=== PATIENT | male | born 1960 | race African-American/Black ===

== ENCOUNTER 2022-08-22 13:25 | Inpatient (IN) | payer OTHER ==
[2022-08-22 15:44] VITALS: BMI 25.8
[2022-08-22] MEDS ORDERED: chlordiazePOXIDE HCL 25 MG CAPSULE PO SCH (17:00)
[2022-08-22] MEDS ORDERED: BISMUTH SUBSALICYLATE 524 MG/30 ML PO PRN (17:24)
[2022-08-22] MEDS ORDERED: guaiFENesin 600 MG TABLET.ER (FP) PO PRN (17:24)
[2022-08-22] MEDS ORDERED: NICOTINE 10 MG CARTRIDGE (INHALER) IH PRN (17:24)
[2022-08-22] MEDS ORDERED: METHOCARBAMOL 500 MG TABLET PO PRN (17:24)
[2022-08-22] MEDS ORDERED: DICYCLOMINE HCL 10 MG CAPSULE PO PRN (17:24)
[2022-08-22] MEDS ORDERED: IBUPROFEN 400 MG TABLET (FP) PO PRN (17:24)
[2022-08-22] MEDS ORDERED: NALOXONE HCL 0.4 MG/ML VIAL IM PRN (17:24)
[2022-08-22] MEDS ORDERED: ONDANSETRON *ODT* 4 MG TABLET SL PRN (17:24)
[2022-08-22] MEDS ORDERED: POLYETHYLENE GLYCOL (HEALTHYLAX) 3350 17 GM PACKET PO PRN (17:24)
[2022-08-22] MEDS ORDERED: MAG HYDROX/AL HYDROX/SIMETH 30 ML UNIT-DOSE CUP PO PRN (17:24)
[2022-08-22] MEDS ORDERED: BENZOCAINE/MENTHOL (CHLORASEPTIC ) LOZENGE MM PRN (17:24)
[2022-08-22] MEDS ORDERED: NALOXONE HCL (KLOXXADO) 8 MG SPRAY NS PRN (17:24)
[2022-08-22] MEDS ORDERED: methaDONE HCL 10 MG TABLET (FOR DETOX USE ONLY) PO ONE ×2 (17:24→20:15)
[2022-08-22] MEDS ORDERED: MAGNESIUM HYDROX 2400MG/30ML ORAL SUSPENSION 30 ML CUP PO PRN (17:24)
[2022-08-22] MEDS ORDERED: IBUPROFEN 600 MG TABLET (FP) PO PRN (17:24)
[2022-08-22] MEDS ORDERED: BENZONATATE 200 MG CAPSULE PO PRN (17:24)
[2022-08-22] MEDS ORDERED: LOPERAMIDE HCL 2 MG CAPSULE PO PRN (17:24)
[2022-08-22] MEDS ORDERED: NICOTINE POLACRILEX 2 MG GUM BUC PRN (17:24)
[2022-08-22] MEDS ORDERED: ACETAMINOPHEN 325 MG TABLET (FP) PO PRN (17:24)
[2022-08-22] MEDS: chlordiazePOXIDE HCL 25 MG CAPSULE PO SCH ×2 (20:34→22:48)
[2022-08-22] MEDS: PRENATAL VITAMINS W/ FOLIC ACID TABLET (FP) PO SCH (20:39)
[2022-08-22] MEDS: MELATONIN 5 MG TABLETS PO SCH (22:40)
[2022-08-22] MEDS: THIAMINE HCL 100 MG TABLET (FP) PO SCH (22:40)
[2022-08-23] MEDS: chlordiazePOXIDE HCL 25 MG CAPSULE PO SCH ×4 (05:44→22:19)
[2022-08-23] MEDS: PRENATAL VITAMINS W/ FOLIC ACID TABLET (FP) PO SCH (10:11)
[2022-08-23 10:13] LABS: HEMATOCRIT 32.6 % (35.4-49); HEMOGLOBIN 10.8 GM/dL (11.7-16.9); MCH 29.8 pg (25.7-33.7); MCHC 33.2 g/dl (32.0-35.9); MEAN CELL VOLUME 89.9 fl (80-96); MEAN PLT VOLUME 7.5 fl (7.5-11.1); PLATELET COUNT 158 10^3/uL (134-434); RBC 3.62 M/mm3 (4.00-5.60); RDW 14.7 % (11.9-15.9); WHITE BLOOD COUNT 5.3 K/mm3 (4.0-10.0)
[2022-08-23 13:49] LABS: CALCIUM 8.1 mg/dL (8.5-10.1)
[2022-08-23 13:50] LABS: ALBUMIN 2.3 g/dl (3.4-5.0); BLOOD UREA NITROGEN 20.8 mg/dL (7-18)
[2022-08-23 13:53] LABS: CREATININE 1.2 mg/dL (0.55-1.3)
[2022-08-23 14:01] LABS: BILIRUBIN,TOTAL 0.5 mg/dL (0.2-1)
[2022-08-23] MEDS ORDERED: POTASSIUM CHLORIDE ORAL LIQUID 20 MEQ/15 ML PO ONE (14:41)
[2022-08-23] MEDS: metFORMIN HCL 500 MG TABLET (FP) PO SCH (17:42)
[2022-08-23] MEDS: MELATONIN 5 MG TABLETS PO SCH (22:18)
[2022-08-23] MEDS: THIAMINE HCL 100 MG TABLET (FP) PO SCH (22:18)
[2022-08-24] MEDS: metFORMIN HCL 500 MG TABLET (FP) PO SCH ×2 (06:07→18:01)
[2022-08-24] MEDS: chlordiazePOXIDE HCL 25 MG CAPSULE PO SCH ×4 (06:07→22:31)
[2022-08-24] MEDS ORDERED: methaDONE HCL 10 MG TABLET (FOR DETOX USE ONLY) PO ONE (10:00)
[2022-08-24] MEDS: PRENATAL VITAMINS W/ FOLIC ACID TABLET (FP) PO SCH (10:10)
[2022-08-24] MEDS: MELATONIN 5 MG TABLETS PO SCH (22:31)
[2022-08-24] MEDS: THIAMINE HCL 100 MG TABLET (FP) PO SCH (22:31)
[2022-08-25] MEDS: chlordiazePOXIDE HCL 10 MG CAPSULE PO SCH ×2 (05:49→10:54)
[2022-08-25] MEDS: metFORMIN HCL 500 MG TABLET (FP) PO SCH (06:02)
[2022-08-25] MEDS: PRENATAL VITAMINS W/ FOLIC ACID TABLET (FP) PO SCH (10:30)
[2022-08-25] MEDS ORDERED: cloNIDine HCL 0.1 MG TABLET PO ONE (10:30)
[2022-08-25 14:15] VITALS: BP 148/107; PULSE 72; RESP 17; TEMP 97.6
[2022-08-26] MEDS ORDERED: chlordiazePOXIDE HCL 10 MG CAPSULE PO SCH (05:00)
[2022-08-26] MEDS ORDERED: methaDONE HCL 10 MG TABLET (FOR DETOX USE ONLY) PO ONE (10:00)
[2022-08-27] MEDS ORDERED: chlordiazePOXIDE HCL 10 MG CAPSULE PO ONE (05:00)
== END 2022-08-25 13:20 | disposition home or self-care (01) | DRG 773 ==
LOC: YASAS 13:25 → Y3N 17:34
PROVIDERS: ADMIT Allergy & Immunology; ATTEND Surgery
PROC: HZ2ZZZZ Detoxification Services for Substance Abuse Treatment (ICD-10-PCS; principal; 2022-08-22)
DX: F11.23 Opioid dependence with withdrawal (principal); F10.230 Alcohol dependence with withdrawal, uncomplicated; F14.20 Cocaine dependence, uncomplicated; F17.210 Nicotine dependence, cigarettes, uncomplicated; E78.2 Mixed hyperlipidemia; I10 Essential (primary) hypertension; E11.59 Type 2 diabetes mellitus with other circulatory complications; Z79.84 Long term (current) use of oral hypoglycemic drugs
CPT/HCPCS: 36415; 80053; 82962; 84132; 85027; 86780; 87811; C9803-CS; U0003; U0005

== ENCOUNTER 2023-03-07 14:12 | Inpatient (IN) | payer OTHER ==
[2023-03-07 15:05] VITALS: RESP 18
[2023-03-07] MEDS ORDERED: BENZOCAINE/MENTHOL (CHLORASEPTIC ) LOZENGE MM PRN (16:06)
[2023-03-07] MEDS ORDERED: NALOXONE HCL (KLOXXADO) 8 MG SPRAY NS PRN (16:06)
[2023-03-07] MEDS ORDERED: POLYETHYLENE GLYCOL (HEALTHYLAX) 3350 17 GM PACKET PO PRN (16:06)
[2023-03-07] MEDS ORDERED: LOPERAMIDE HCL 2 MG CAPSULE PO PRN (16:06)
[2023-03-07] MEDS ORDERED: ACETAMINOPHEN 325 MG TABLET (FP) PO PRN (16:06)
[2023-03-07] MEDS ORDERED: NICOTINE POLACRILEX 4 MG GUM BUC PRN (16:06)
[2023-03-07] MEDS ORDERED: NALOXONE HCL 0.4 MG/ML VIAL IVPUSH PRN (16:06)
[2023-03-07] MEDS ORDERED: COLLOIDAL OATMEAL 1 BAR EACH TP PRN (16:06)
[2023-03-07] MEDS ORDERED: BENZONATATE 200 MG CAPSULE PO PRN (16:06)
[2023-03-07] MEDS ORDERED: MAGNESIUM HYDROX 2400MG/30ML ORAL SUSPENSION 30 ML CUP PO PRN (16:06)
[2023-03-07] MEDS ORDERED: MAG HYDROX/AL HYDROX/SIMETH 30 ML UNIT-DOSE CUP PO PRN (16:06)
[2023-03-07] MEDS ORDERED: guaiFENesin 600 MG TABLET.ER (FP) PO PRN (16:06)
[2023-03-07] MEDS: INSULIN SLIDING SCALE (NOVOLOG) 1 VIAL SQ SCH (17:18)
[2023-03-07] MEDS: MELATONIN 5 MG TABLETS PO SCH (21:19)
[2023-03-07] MEDS: metFORMIN HCL 500 MG TABLET (FP) PO SCH (21:19)
[2023-03-07] MEDS: THIAMINE HCL 100 MG TABLET (FP) PO SCH (21:20)
[2023-03-07] MEDS: ROSUVASTATIN CA 40 MG TABLET PO SCH (23:30)
[2023-03-08] MEDS: INSULIN SLIDING SCALE (NOVOLOG) 1 VIAL SQ SCH ×2 (07:00→16:52)
[2023-03-08] MEDS: FUROSEMIDE 40 MG TABLET (FP) PO SCH (09:54)
[2023-03-08] MEDS: metFORMIN HCL 500 MG TABLET (FP) PO SCH ×2 (09:54→21:21)
[2023-03-08] MEDS: ASPIRIN 81 MG CHEWABLE TABLETS PO SCH (09:54)
[2023-03-08] MEDS: PRENATAL VITAMINS W/ FOLIC ACID TABLET (FP) PO SCH (09:55)
[2023-03-08] MEDS: amLODIPine BESYLATE 10 MG TABLET (FP) PO SCH (09:57)
[2023-03-08] MEDS: THIAMINE HCL 100 MG TABLET (FP) PO SCH ×2 (09:57→21:22)
[2023-03-08] MEDS: NICOTINE 14 MG/24 HOURS TOPICAL PATCH TD PRN (09:59)
[2023-03-08 12:53] LABS: HIV INTERPRETATION NEGATIVE (NEGATIVE)
[2023-03-08] MEDS: ISOSORBIDE MONONITRATE 60 MG TAB.SR.24H (FP) PO SCH (13:20)
[2023-03-08] MEDS: MELATONIN 5 MG TABLETS PO SCH (21:22)
[2023-03-09] MEDS: ROSUVASTATIN CA 40 MG TABLET PO SCH (00:11)
[2023-03-09] MEDS ORDERED: INSULIN (NOVOLOG) ASPART 100 UNITS/ML 10ML VIAL ONE (07:21)
[2023-03-09] MEDS: INSULIN SLIDING SCALE (NOVOLOG) 1 VIAL SQ SCH ×2 (07:22→17:31)
[2023-03-09] MEDS: ISOSORBIDE MONONITRATE 60 MG TAB.SR.24H (FP) PO SCH (09:46)
[2023-03-09] MEDS: metFORMIN HCL 500 MG TABLET (FP) PO SCH ×2 (09:46→21:28)
[2023-03-09] MEDS: amLODIPine BESYLATE 10 MG TABLET (FP) PO SCH (09:46)
[2023-03-09] MEDS: FUROSEMIDE 40 MG TABLET (FP) PO SCH (09:46)
[2023-03-09] MEDS: ASPIRIN 81 MG CHEWABLE TABLETS PO SCH (09:47)
[2023-03-09] MEDS: THIAMINE HCL 100 MG TABLET (FP) PO SCH ×2 (09:47→21:29)
[2023-03-09] MEDS: PRENATAL VITAMINS W/ FOLIC ACID TABLET (FP) PO SCH (09:47)
[2023-03-09] MEDS: NICOTINE 14 MG/24 HOURS TOPICAL PATCH TD PRN (09:49)
[2023-03-09] MEDS: IBUPROFEN 600 MG TABLET (FP) PO PRN ×2 (11:15→16:32)
[2023-03-09] MEDS ORDERED: ROSUVASTATIN CA 10 MG TABLET ONE (20:09)
[2023-03-09] MEDS: ROSUVASTATIN CA 20 MG TABLET PO SCH (21:28)
[2023-03-09] MEDS: MELATONIN 5 MG TABLETS PO SCH (21:29)
[2023-03-10] MEDS: METHOCARBAMOL 500 MG TABLET PO PRN ×2 (00:13→06:15)
[2023-03-10] MEDS: hydrOXYzine PAMOATE 25 MG CAPSULE (FP) PO PRN (00:13)
[2023-03-10] MEDS: IBUPROFEN 600 MG TABLET (FP) PO PRN ×2 (02:19→06:13)
[2023-03-10] MEDS: INSULIN SLIDING SCALE (NOVOLOG) 1 VIAL SQ SCH ×2 (06:23→17:04)
[2023-03-10] MEDS: PRENATAL VITAMINS W/ FOLIC ACID TABLET (FP) PO SCH (09:57)
[2023-03-10] MEDS: metFORMIN HCL 500 MG TABLET (FP) PO SCH ×2 (09:57→21:11)
[2023-03-10] MEDS: ASPIRIN 81 MG CHEWABLE TABLETS PO SCH (09:57)
[2023-03-10] MEDS: amLODIPine BESYLATE 10 MG TABLET (FP) PO SCH (09:58)
[2023-03-10] MEDS: ISOSORBIDE MONONITRATE 60 MG TAB.SR.24H (FP) PO SCH (09:58)
[2023-03-10 10:40] LABS: POTASSIUM 4.1 mmol/L (3.5-5.1)
[2023-03-10 10:45] LABS: INR 1.12 (0.83-1.09)
[2023-03-10 10:48] LABS: ACTIVATED PTT 33.6 SECONDS (25.2-36.5)
[2023-03-10 10:54] LABS: ALBUMIN 3.2 g/dl (3.4-5.0); BLOOD UREA NITROGEN 15.6 mg/dL (7-18); CALCIUM 8.8 mg/dL (8.5-10.1); MAGNESIUM 1.9 mg/dL (1.8-2.4)
[2023-03-10 10:57] LABS: CHOLESTEROL 141 mg/dL (50-200); CREATININE 1.2 mg/dL (0.55-1.3)
[2023-03-10 10:58] LABS: LDL CHOLESTEROL (ONLY SJRH) 87 mg/dL (5-100)
[2023-03-10 10:59] LABS: BILIRUBIN,TOTAL 0.9 mg/dL (0.2-1); TOT PROT 7.3 g/dl (6.4-8.2)
[2023-03-10 11:00] LABS: HDL CHOLESTEROL 55 mg/dL (40-60)
[2023-03-10] MEDS: THIAMINE HCL 100 MG TABLET (FP) PO SCH ×2 (11:21→21:11)
[2023-03-10] MEDS: FUROSEMIDE 20 MG TABLET (FP) PO SCH (11:22)
[2023-03-10] MEDS: NICOTINE 14 MG/24 HOURS TOPICAL PATCH TD PRN (11:25)
[2023-03-10] MEDS: IBUPROFEN 400 MG TABLET (FP) PO PRN (16:46)
[2023-03-10] MEDS ORDERED: ROSUVASTATIN CA 10 MG TABLET ONE (19:17)
[2023-03-10] MEDS: MELATONIN 5 MG TABLETS PO SCH (21:11)
[2023-03-10] MEDS: SUVOREXANT 5 MG TABLET PO PRN (21:11)
[2023-03-10] MEDS: ROSUVASTATIN CA 20 MG TABLET PO SCH (21:12)
[2023-03-11] MEDS: IBUPROFEN 400 MG TABLET (FP) PO PRN (00:24)
[2023-03-11] MEDS: INSULIN SLIDING SCALE (NOVOLOG) 1 VIAL SQ SCH ×2 (06:27→17:33)
[2023-03-11] MEDS: IBUPROFEN 600 MG TABLET (FP) PO PRN (06:28)
[2023-03-11] MEDS: THIAMINE HCL 100 MG TABLET (FP) PO SCH ×2 (10:24→21:20)
[2023-03-11] MEDS: ASPIRIN 81 MG CHEWABLE TABLETS PO SCH (10:24)
[2023-03-11] MEDS: amLODIPine BESYLATE 10 MG TABLET (FP) PO SCH (10:24)
[2023-03-11] MEDS: FUROSEMIDE 20 MG TABLET (FP) PO SCH (10:24)
[2023-03-11] MEDS: CHOLECALCIFEROL (VIT D3) 400 UNIT (10 MCG) TABLET PO SCH (10:24)
[2023-03-11] MEDS: metFORMIN HCL 500 MG TABLET (FP) PO SCH ×2 (10:25→21:21)
[2023-03-11] MEDS: PRENATAL VITAMINS W/ FOLIC ACID TABLET (FP) PO SCH (10:25)
[2023-03-11] MEDS: NICOTINE 14 MG/24 HOURS TOPICAL PATCH TD PRN (10:26)
[2023-03-11] MEDS: ISOSORBIDE MONONITRATE 60 MG TAB.SR.24H (FP) PO SCH (10:26)
[2023-03-11] MEDS ORDERED: ROSUVASTATIN CA 10 MG TABLET ONE (19:44)
[2023-03-11] MEDS: ROSUVASTATIN CA 20 MG TABLET PO SCH (21:21)
[2023-03-11] MEDS: MELATONIN 5 MG TABLETS PO SCH (23:10)
[2023-03-12] MEDS: METHOCARBAMOL 500 MG TABLET PO PRN (01:08)
[2023-03-12] MEDS: hydrOXYzine PAMOATE 25 MG CAPSULE (FP) PO PRN (01:08)
[2023-03-12] MEDS: INSULIN SLIDING SCALE (NOVOLOG) 1 VIAL SQ SCH ×2 (07:35→17:12)
[2023-03-12] MEDS: ASPIRIN 81 MG CHEWABLE TABLETS PO SCH (09:52)
[2023-03-12] MEDS: PRENATAL VITAMINS W/ FOLIC ACID TABLET (FP) PO SCH (09:52)
[2023-03-12] MEDS: FUROSEMIDE 20 MG TABLET (FP) PO SCH (09:52)
[2023-03-12] MEDS: THIAMINE HCL 100 MG TABLET (FP) PO SCH ×2 (09:52→21:22)
[2023-03-12] MEDS: metFORMIN HCL 500 MG TABLET (FP) PO SCH ×2 (09:53→21:22)
[2023-03-12] MEDS: amLODIPine BESYLATE 10 MG TABLET (FP) PO SCH (09:53)
[2023-03-12] MEDS: CHOLECALCIFEROL (VIT D3) 400 UNIT (10 MCG) TABLET PO SCH (09:53)
[2023-03-12] MEDS: ISOSORBIDE MONONITRATE 60 MG TAB.SR.24H (FP) PO SCH (09:54)
[2023-03-12] MEDS: NICOTINE 14 MG/24 HOURS TOPICAL PATCH TD PRN (09:55)
[2023-03-12] MEDS ORDERED: INSULIN (NOVOLOG) ASPART 100 UNITS/ML 10ML VIAL ONE (17:11)
[2023-03-12] MEDS: ROSUVASTATIN CA 20 MG TABLET PO SCH (21:22)
[2023-03-12] MEDS: IBUPROFEN 400 MG TABLET (FP) PO PRN (21:22)
[2023-03-12] MEDS: MELATONIN 5 MG TABLETS PO SCH (23:17)
[2023-03-12] MEDS: SUVOREXANT 5 MG TABLET PO PRN (23:19)
[2023-03-13] MEDS ORDERED: INSULIN (NOVOLOG) ASPART 100 UNITS/ML 10ML VIAL ONE (06:46)
[2023-03-13] MEDS: INSULIN SLIDING SCALE (NOVOLOG) 1 VIAL SQ SCH ×2 (06:48→16:58)
[2023-03-13] MEDS: ASPIRIN 81 MG CHEWABLE TABLETS PO SCH (09:57)
[2023-03-13] MEDS: CHOLECALCIFEROL (VIT D3) 400 UNIT (10 MCG) TABLET PO SCH (09:57)
[2023-03-13] MEDS: PRENATAL VITAMINS W/ FOLIC ACID TABLET (FP) PO SCH (09:57)
[2023-03-13] MEDS: FUROSEMIDE 20 MG TABLET (FP) PO SCH (09:58)
[2023-03-13] MEDS: THIAMINE HCL 100 MG TABLET (FP) PO SCH ×2 (09:58→21:04)
[2023-03-13] MEDS: metFORMIN HCL 500 MG TABLET (FP) PO SCH ×2 (09:59→21:05)
[2023-03-13] MEDS: ISOSORBIDE MONONITRATE 60 MG TAB.SR.24H (FP) PO SCH (10:00)
[2023-03-13] MEDS: amLODIPine BESYLATE 10 MG TABLET (FP) PO SCH (10:00)
[2023-03-13] MEDS: NICOTINE 14 MG/24 HOURS TOPICAL PATCH TD PRN (10:02)
[2023-03-13] MEDS: MAGNESIUM CITRATE 300 ML BOTTLE PO SCH (11:51)
[2023-03-13] MEDS: IBUPROFEN 400 MG TABLET (FP) PO PRN (19:03)
[2023-03-13] MEDS ORDERED: ROSUVASTATIN CA 10 MG TABLET ONE (20:12)
[2023-03-13] MEDS: MELATONIN 5 MG TABLETS PO SCH (21:04)
[2023-03-13] MEDS: ROSUVASTATIN CA 20 MG TABLET PO SCH (21:05)
[2023-03-13] MEDS ORDERED: SUVOREXANT 5 MG TABLET PO PRN (22:00)
[2023-03-13] MEDS: SUVOREXANT 10 MG TABLET PO PRN (23:26)
[2023-03-14] MEDS: IBUPROFEN 600 MG TABLET (FP) PO PRN ×2 (03:49→10:20)
[2023-03-14] MEDS: metFORMIN HCL 500 MG TABLET (FP) PO SCH ×2 (06:39→20:02)
[2023-03-14] MEDS: INSULIN SLIDING SCALE (NOVOLOG) 1 VIAL SQ SCH ×2 (06:40→16:45)
[2023-03-14] MEDS: PRENATAL VITAMINS W/ FOLIC ACID TABLET (FP) PO SCH (10:19)
[2023-03-14] MEDS: CHOLECALCIFEROL (VIT D3) 400 UNIT (10 MCG) TABLET PO SCH (10:19)
[2023-03-14] MEDS: ISOSORBIDE MONONITRATE 60 MG TAB.SR.24H (FP) PO SCH (10:19)
[2023-03-14] MEDS: amLODIPine BESYLATE 10 MG TABLET (FP) PO SCH (10:19)
[2023-03-14] MEDS: THIAMINE HCL 100 MG TABLET (FP) PO SCH ×2 (10:20→21:20)
[2023-03-14] MEDS: ASPIRIN 81 MG CHEWABLE TABLETS PO SCH (10:20)
[2023-03-14] MEDS: MAGNESIUM CITRATE 300 ML BOTTLE PO SCH (10:22)
[2023-03-14] MEDS: NICOTINE 14 MG/24 HOURS TOPICAL PATCH TD PRN (10:23)
[2023-03-14] MEDS: FUROSEMIDE 20 MG TABLET (FP) PO SCH (10:50)
[2023-03-14] MEDS ORDERED: ROSUVASTATIN CA 10 MG TABLET ONE (19:49)
[2023-03-14] MEDS: hydrOXYzine PAMOATE 25 MG CAPSULE (FP) PO PRN (21:20)
[2023-03-14] MEDS: MELATONIN 5 MG TABLETS PO SCH (21:20)
[2023-03-14] MEDS: ROSUVASTATIN CA 20 MG TABLET PO SCH (21:20)
[2023-03-14] MEDS: SUVOREXANT 10 MG TABLET PO PRN (22:49)
[2023-03-15] MEDS ORDERED: INSULIN (NOVOLOG) ASPART 100 UNITS/ML 10ML VIAL ONE (05:02)
[2023-03-15] MEDS: metFORMIN HCL 500 MG TABLET (FP) PO SCH (05:20)
[2023-03-15] MEDS: INSULIN SLIDING SCALE (NOVOLOG) 1 VIAL SQ SCH (06:06)
[2023-03-15 06:53] VITALS: TEMP 97.5
[2023-03-15] MEDS: PRENATAL VITAMINS W/ FOLIC ACID TABLET (FP) PO SCH (10:35)
[2023-03-15] MEDS: amLODIPine BESYLATE 10 MG TABLET (FP) PO SCH (10:35)
[2023-03-15] MEDS: ASPIRIN 81 MG CHEWABLE TABLETS PO SCH (10:35)
[2023-03-15] MEDS: MAGNESIUM CITRATE 300 ML BOTTLE PO SCH (10:35)
[2023-03-15] MEDS: CHOLECALCIFEROL (VIT D3) 400 UNIT (10 MCG) TABLET PO SCH (10:35)
[2023-03-15] MEDS: THIAMINE HCL 100 MG TABLET (FP) PO SCH (10:35)
[2023-03-15] MEDS: ISOSORBIDE MONONITRATE 60 MG TAB.SR.24H (FP) PO SCH (10:36)
[2023-03-15] MEDS: FUROSEMIDE 20 MG TABLET (FP) PO SCH (10:36)
[2023-03-15] MEDS: NICOTINE 14 MG/24 HOURS TOPICAL PATCH TD PRN (10:37)
[2023-03-15 10:58] VITALS: BP 125/71; PULSE 73
[2023-03-15] MEDS ORDERED: MAGNESIUM CITRATE 300 ML BOTTLE PO PRN (12:16)
== END 2023-03-15 15:57 | disposition home or self-care (01) | DRG 772 ==
LOC: YASAS 14:12 → Y5N 14:13
PROVIDERS: ADMIT Allergy & Immunology; ATTEND Psychiatry & Neurology Pain Medicine
PROC: HZ42ZZZ Group Counseling for Substance Abuse Treatment, Cognitive-Behavioral (ICD-10-PCS; principal; 2023-03-07)
DX: F10.20 Alcohol dependence, uncomplicated (principal); F14.20 Cocaine dependence, uncomplicated; F17.210 Nicotine dependence, cigarettes, uncomplicated; G47.00 Insomnia, unspecified; I10 Essential (primary) hypertension; E78.2 Mixed hyperlipidemia; E11.59 Type 2 diabetes mellitus with other circulatory complications; Z79.84 Long term (current) use of oral hypoglycemic drugs; Z86.79 Personal history of other diseases of the circulatory system; Z95.0 Presence of cardiac pacemaker
CPT/HCPCS: 36415; 71045-TC-FY; 80053; 80061; 82140; 82306; 82550; 82962; 83735; 84484; 85610; 85730; 86803; 87389; 93005; 93010

== ENCOUNTER 2024-03-21 11:42 | Inpatient (IN) | payer OTHER ==
[2024-03-21 11:51] VITALS: BMI 23.8
[2024-03-21] MEDS ORDERED: NICOTINE POLACRILEX 2 MG GUM BUC PRN (13:03)
[2024-03-21] MEDS ORDERED: NALOXONE (NYS OPIOID OVERDOSE PROGRAM) 4 MG/0.1 ML SPRAY NS PRN (13:03)
[2024-03-21] MEDS ORDERED: NALOXONE (NARCAN) HCL 4 MG/0.1 ML SPRAY NS PRN (13:03)
[2024-03-21] MEDS ORDERED: BENZONATATE 200 MG CAPSULE PO PRN (13:03)
[2024-03-21] MEDS ORDERED: BENZOCAINE/MENTHOL (CHLORASEPTIC ) LOZENGE MM PRN (13:03)
[2024-03-21] MEDS ORDERED: guaiFENesin 600 MG TABLET.ER (FP) PO PRN (13:03)
[2024-03-21] MEDS ORDERED: LOPERAMIDE HCL 2 MG CAPSULE PO PRN (13:03)
[2024-03-21] MEDS ORDERED: POLYETHYLENE GLYCOL (HEALTHYLAX) 3350 17 GM PACKET PO PRN (13:03)
[2024-03-21] MEDS ORDERED: MAGNESIUM HYDROX 2400MG/30ML ORAL SUSPENSION 30 ML CUP PO PRN (13:03)
[2024-03-21] MEDS ORDERED: IBUPROFEN 400 MG TABLET (FP) PO PRN (13:03)
[2024-03-21] MEDS ORDERED: ONDANSETRON *ODT* 4 MG TABLET SL PRN (13:03)
[2024-03-21] MEDS ORDERED: ACETAMINOPHEN 325 MG TABLET (FP) PO PRN (13:03)
[2024-03-21] MEDS ORDERED: BISMUTH SUBSALICYLATE 262 MG/15 ML BTL PO PRN (13:03)
[2024-03-21] MEDS: IBUPROFEN 600 MG TABLET (FP) PO PRN (19:19)
[2024-03-21] MEDS: THIAMINE 100 MG TABLET PO SCH (21:30)
[2024-03-21] MEDS: MELATONIN 5 MG TABLETS PO SCH (21:30)
[2024-03-21] MEDS ORDERED: SENNOSIDES 8.6MG TABLET (FP) PO PRN (22:44)
[2024-03-21] MEDS ORDERED: DOCUSATE SODIUM 100 MG CAPSULE (FP) PO PRN (22:44)
[2024-03-22] MEDS: hydrALAZINE HCL 25 MG TABLET (FP) PO SCH (06:29)
[2024-03-22] MEDS: MAG HYDROX/AL HYDROX/SIMETH 30 ML UNIT-DOSE CUP PO PRN (06:29)
[2024-03-22] MEDS: metFORMIN HCL 500 MG TABLET (FP) PO SCH (06:29)
[2024-03-22] MEDS: methaDONE HCL 40 MG DISPERSABLE TABLET PO SCH (09:58)
[2024-03-22] MEDS: FUROSEMIDE 40 MG TABLET (FP) PO SCH (10:00)
[2024-03-22] MEDS: ASPIRIN COATED 81 MG TABLET.EC PO SCH (10:00)
[2024-03-22] MEDS: PRENATAL VITAMINS W/ FOLIC ACID TABLET (FP) PO SCH (10:00)
[2024-03-22] MEDS: amLODIPine BESYLATE 10 MG TABLET (FP) PO SCH (10:00)
[2024-03-22] MEDS: FOLIC ACID 1 MG TABLET (FP) PO SCH (10:01)
[2024-03-22] MEDS: NICOTINE 14 MG/24 HOURS TOPICAL PATCH TD SCH (10:01)
[2024-03-22] MEDS: ISOSORBIDE MONONITRATE 30 MG TAB.SR.24H (FP) PO SCH (10:48)
[2024-03-22 14:37] LABS: HEMATOCRIT 35.7 % (35.4-49); HEMOGLOBIN 12.1 GM/dL (11.7-16.9); MCH 29.8 pg (25.7-33.7); MCHC 33.9 g/dl (32.0-35.9); MEAN PLT VOLUME 9.4 fl (7.5-11.1); PLATELET COUNT 144 10^3/uL (134-434); RBC 4.06 M/mm3 (4.00-5.60); RDW 13.8 % (11.9-15.9); WHITE BLOOD COUNT 4.4 K/mm3 (4.0-10.0)
[2024-03-22 15:26] LABS: POTASSIUM 3.5 mmol/L (3.5-5.1)
[2024-03-22 15:29] LABS: ALBUMIN 3.5 g/dl (3.4-5.0); BLOOD UREA NITROGEN 22.8 mg/dL (7-18); CALCIUM 9.2 mg/dL (8.5-10.1)
[2024-03-22 15:32] LABS: CREATININE 2.1 mg/dL (0.55-1.3)
[2024-03-22 15:34] LABS: BILIRUBIN,TOTAL 0.6 mg/dL (0.2-1); TOT PROT 7.7 g/dl (6.4-8.2)
[2024-03-22] MEDS: INSULIN ASPART SLIDING SCALE (NOVOLOG) 1 VIAL SQ SCH (17:04)
[2024-03-22] MEDS: ATORVASTATIN CA 40 MG TABLET (FP) PO SCH (21:46)
[2024-03-24] MEDS: CHOLECALCIFEROL (VIT D3) 400 UNIT (10 MCG) TABLET PO SCH (12:02)
[2024-03-25] MEDS: BACLOFEN 10 MG TABLET (FP) PO SCH (14:28)
[2024-03-25] MEDS: GABAPENTIN 300 MG CAPSULE PO SCH (14:28)
[2024-03-25] MEDS: BACITRACIN 0.9 GM PACKET TP SCH (14:28)
[2024-03-25] MEDS: LACTULOSE 20 GM/30 ML UDC (FOR ORAL USE ONLY) PO SCH (14:29)
[2024-03-25 22:52] VITALS: RESP 16
[2024-03-26 07:11] VITALS: TEMP 97.2
[2024-03-26 12:26] VITALS: BP 149/80; PULSE 70
== END 2024-03-26 11:50 | disposition home or self-care (01) | DRG 772 ==
LOC: YASAS 11:42 → Y5N 14:27
PROVIDERS: ADMIT Psychiatry & Neurology Pain Medicine; ATTEND Psychiatry & Neurology Pain Medicine
PROC: HZ42ZZZ Group Counseling for Substance Abuse Treatment, Cognitive-Behavioral (ICD-10-PCS; principal; 2024-03-21)
DX: F14.20 Cocaine dependence, uncomplicated (principal); F10.20 Alcohol dependence, uncomplicated; E72.20 Disorder of urea cycle metabolism, unspecified; D64.9 Anemia, unspecified; E78.5 Hyperlipidemia, unspecified; I11.0 Hypertensive heart disease with heart failure; I50.9 Heart failure, unspecified; J44.9 Chronic obstructive pulmonary disease, unspecified; E11.59 Type 2 diabetes mellitus with other circulatory complications; Z79.84 Long term (current) use of oral hypoglycemic drugs; Z86.11 Personal history of tuberculosis; Z56.0 Unemployment, unspecified; Z59.00 Homelessness unspecified
CPT/HCPCS: 36415; 71046-TC-FY; 80053; 80305; 80307; 82140; 82306; 82962; 85027; 86780; 87811; 93005; 93010; J0475